=== PATIENT | female | born 1945 | race Caucasian/White ===

== ENCOUNTER → 2024-06-19 12:23 | Outpatient (CLI) | payer OTHER, SELFPAY ==
--- NOTE | 2024-06-19 12:26 | DI.ECHO.S_ITS ---
[facility] : : [id number] : : [place] : : [id number] : : Phone: [phone] Echocardiogram Report + + :Name: CHARLOTTE BOTELLO Study Date: 06/19/2024 Height: 67 in : :[facility] ReadingLocation: Weight: 162 lb : : Gender: Female BSA: 1.8 m2 : :: 1945 Age: 79 yrs BP: 157/84 mmHg: :Reason For Study: CAD : :Ordering Physician: DEANNA, : :MICHAEL Performed By: Epi Norton : :Referring: MICHAEL HUERTA : + + Interpretation Summary The ejection fraction is estimated to be 50-55%. Diastolic function could not be accurately assessed due to unobtainable data. The right ventricle is normal in size and function. There is mild mitral regurgitation. Pulmonary artery pressures cannot be estimated because of the lack of a measurable TR jet velocity but the IVC suggests a CVP of around 3 mmHg. No change compared to prior study 12/21/2023. Procedure: A two-dimensional transthoracic echocardiogram with color flow and Doppler was performed. The study quality was technically good. Comparison is made with the echocardiogram of 12/21/23. The patient was in normal sinus rhythm during the exam. Left Ventricle: The left ventricle is normal in size. There is normal left ventricular wall thickness. There is no ventricular septal defect visualized. The ejection fraction is estimated to be 50-55%. Diastolic function could not be accurately assessed due to unobtainable data. Right Ventricle: The right ventricle is normal in size and function. Atria: The left atrial size is normal. Right atrial size is normal. The atrial septum is aneurysmal. There is no Doppler evidence for an interatrial shunt. Mitral Valve: The mitral valve is normal. There is mild mitral annular calcification. There is mild mitral regurgitation. Aortic Valve: The aortic valve is trileaflet. The aortic valve opens well. There is no aortic valve stenosis. No aortic regurgitation is present. Tricuspid Valve: The tricuspid valve leaflets are thin and pliable. There is a trace or physiologic amount of tricuspid regurgitation. Pulmonary artery pressures cannot be estimated because of the lack of a measurable TR jet velocity but the IVC suggests a CVP of around 3 mmHg. Pulmonic Valve: The pulmonic valve leaflets are thin and pliable; valve motion is normal. There is trace pulmonic regurgitation. Great Vessels: The aortic root is normal size. The ascending aorta is at the upper limits of normal in size. The pulmonary artery is normal size. The IVC is of normal diameter and collapses greater than 50% with a sniff. This suggests a low right atrial pressure of 3 mm Hg. Pericardium/ Pleura There is no pericardial effusion. There is no pleural effusion. MMode/2D Measurements & Calculations LVIDd: 5.3 cm LVOT diam: 2.3 cm LVIDs: 4.1 cm Ao root diam: 3.6 cm FS: 23.2 % asc Aorta Diam: 3.7 cm EPSS: 1.1 cm Ao Arch Diam (Prox Trans): 1.8 cm IVSd: 1.0 cm LVPWd: 1.0 cm LV styles. diameter/BSA (cm/m^2): 2.9 LV sys. diameter/BSA (cm/m^2): 2.2 LA A2 area: 19.5 cm2 RA long axis: 5.5 cm LA A4 area: 19.5 cm2 RA area: 16.5 cm2 LA length (vol): 5.3 cm RA vol: 42.3 ml LA vol: 61.0 ml RA : 22.9 ml/m2 LA vol index: 33.0 ml/m2 IVC diam: 1.5 cm RVD1 (basal): 3.8 cm TAPSE: 2.5 cm Doppler Measurements & Calculations Ao V2 max: 99.6 cm/sec LVOT Max Steve: 77.3 cm/sec Ao V2 mean: 72.1 cm/sec LV V1 max P.4 mmHg Ao max P.0 mmHg LV V1 VTI: 20.8 cm Ao mean P.3 mmHg JENISE(I,D): 3.4 cm2 Ao V2 VTI: 24.4 cm JENISE(V,D): 3.1 cm2 sev ratio: 0.85 JENISE indexed to BSA (cm^2/m^2): 1.9 MV E max steve: 51.3 cm/sec PA V2 max: 55.4 cm/sec MV A max steve: 81.2 cm/sec PA V2 mean: 38.6 cm/sec MV E/A: 0.63 PA mean P.65 mmHg Med Peak E' Steve: 3.1 cm/sec PA pr(Accel): 29.3 mmHg E/E' med: 16.3 Lat Peak E' Steve: 4.1 cm/sec E/E' lat: 12.6 E/e' average: 14.5 MV dec time: 0.28 sec SV(LVOT): 83.8 ml Reading Physician:03:46 PM
== END ==
LOC: ECHO 12:25
PROVIDERS: Referring Provider Chiropractor; Visit Provider Chiropractor
DX: I34.81 Nonrheumatic mitral (valve) annulus calcification (principal); I34.0 Nonrheumatic mitral (valve) insufficiency; I25.10 Atherosclerotic heart disease of native coronary artery without angina pectoris
CPT/HCPCS: 93306